=== PATIENT | female | born 1950 | race Caucasian/White ===

== ENCOUNTER → 2016-05-11 | Outpatient (CLI) | payer MEDICARE, OTHER | LOC: MW.CHFP 10:19 | PROVIDERS: ATTEND Physician Assistant | DX: R73.9 Hyperglycemia, unspecified (principal) | CPT/HCPCS: 36415; 83036 ==

== ENCOUNTER → 2016-05-14 | Outpatient (CLI) | payer MEDICARE, OTHER | LOC: MW.CHFP 08:00 | PROVIDERS: ATTEND Physician Assistant | DX: R73.03 Prediabetes (principal); F41.9 Anxiety disorder, unspecified | CPT/HCPCS: 99214 ==

== ENCOUNTER → 2016-06-26 | Outpatient (CLI) | payer MEDICARE, OTHER ==
--- NOTE | 2016-06-28 12:59 | CR ---
EXAM DATE: 06/26/16 PATIENT'S AGE: 66 Patient: BRIDGETTE SANTIZO Facility: [place], [place] Site . Site : 1950 Study: XRay Knee Left [id number]/[id number] 2:41:22 PM Ordering Physician: Deja Rm Final Report: HISTORY: Osteoarthritis. Findings: Standing AP and lateral views of the left knee were obtained with a sunrise view. Exam is compared with 07 Jul 2015. A left total knee arthroplasty is present. There is normal alignment of the femoral and tibial components. There is postoperative change of the posterior patella. No joint effusion is seen. Skin yue have been removed. Impression: Left total knee arthroplasty in anatomic alignment without fracture. Dictated by Irma Watson MD @ Jun 27 2016 8:22PM (Electronic Signature) Report Signed by Proxy. PAULINA
== END ==
LOC: MW.CHORTHO 07:54
PROVIDERS: ATTEND Orthopaedic Surgery
DX: M17.12 Unilateral primary osteoarthritis, left knee (principal); Z96.652 Presence of left artificial knee joint
CPT/HCPCS: 73562-26-LT; 73562-LT; G0463